=== PATIENT | male | born 1950 | race African-American/Black ===

== ENCOUNTER 2016-10-15 05:03 | Observation (INO) | payer OTHER, MEDICAID ==
[~2016-10-15] VITALS: Ht 48.3 cm; Wt 80.9 kg
[2016-10-15] MEDS ORDERED: ONDANSETRON HCL 4MG/2ML VIAL IV STA (06:08)
[2016-10-15] MEDS ORDERED: MORPHINE SULFATE 4 MG/ML CPJ (NOT FOR IM USE) IV STA (06:08)
[2016-10-15 06:24] LABS: BASOPHILS % 0.2 % (0.0-2.0); EOSINOPHILS % 1.3 % (0.0-5.0); HEMATOCRIT. 46.5 % (42.0-52.0); HEMOGLOBIN. 15.6 g/dL (14.0-18.0); LYMPHOCYTES % 11.2 % (20.0-50.0); MEAN CORPUSCULAR HEMOGLOBIN 30.9 pg (28.0-32.0); MEAN CORPUSCULAR HGB CONC 33.6 g/dL (31.0-37.0); MEAN CORPUSCULAR VOLUME 92.2 fL (80.0-94.0); MONOCYTES % 5.1 % (2.0-8.0); NEUTROPHILS % 82.2 % (40.0-76.0); PLATELET 191 x1000/uL (130-400); RED BLOOD CELL COUNT 5.04 mill/uL (4.7-6.1)
[2016-10-15 06:32] LABS: INR 1.1; PROTHROMBIN TIME 11.5 sec
[2016-10-15 06:41] LABS: ALANINE AMINOTRANSFERASE 21 IU/L (13-61); ALBUMIN 3.9 g/dL (3.4-5.0); ANION GAP 16; CALCIUM 8.9 mg/dL (8.5-10.1); CARBON DIOXIDE 26 mEq/L (21-32); CHLORIDE 102 mEq/L (98-107); INDEX HEMOLYSI 1 (1-3); INDEX ICTERIC 1 (1-4); INDEX LIPEMIC 1 (1-3); NT PRO B-TYPE NATRIURETIC PEP 12 pg/mL (5-125); TROPONIN I 0.08 ng/mL (0.00-0.04); UREA NITROGEN BLOOD 18 mg/dL (7-21); eGFR > 60 mL/min (>60)
[2016-10-15] MEDS ORDERED: ACETAMINOPHEN 325MG TABLET PO ONE (07:30)
[2016-10-15] MEDS ORDERED: SITA50TA3 PO (13:56)
[2016-10-15] MEDS ORDERED: INSULIN SUBCUT ×2 (14:10)
[2016-10-15] MEDS ORDERED: ASPI81TA2 PO (14:10)
[2016-10-15 14:25] VITALS: BP 165/95
[2016-10-15] MEDS ORDERED: DEXTROSE 50% WATER 50ML SYRINGE IV PRN (15:30)
[2016-10-15 16:00] VITALS: BP 148/91
[2016-10-15] MEDS ORDERED: LOSARTAN POTASSIUM 25 MG TABLET PO SCH (16:00)
[2016-10-15] MEDS: OMEPRAZOLE 20MG CAPSULE EXTENDED RELEASE PO SCH ×2 (16:59→20:58)
[2016-10-15] MEDS: ENOXAPARIN 40MG/0.4ML SYR SUBCUT SCH (17:00)
[2016-10-15] MEDS: BLOOD SUGAR DIAGNOSTIC STRIP TEST SCH ×2 (17:10→21:20)
[2016-10-15] MEDS: INSULIN LISPRO 100 UNITS/ML SUBCUT SCH ×2 (17:11→21:20)
[2016-10-15 20:00] VITALS: BP 186/112
[2016-10-15] MEDS: AMLODIPINE 5MG TABLET PO SCH (20:58)
[2016-10-15] MEDS ORDERED: CLONIDINE 0.1MG TABLET PO PRN (21:00)
[2016-10-16] VITALS: BP 135/78
[2016-10-16 00:28] LABS: CREATINE KINASE MB FRACTION 0.8 ng/mL (0.5-3.6); TROPONIN I 0.08 ng/mL (0.00-0.04)
[2016-10-16 04:00] VITALS: BP 125/75
[2016-10-16] MEDS: OMEPRAZOLE 20MG CAPSULE EXTENDED RELEASE PO SCH (06:14)
[2016-10-16] MEDS: INSULIN LISPRO 100 UNITS/ML SUBCUT SCH ×2 (06:15→12:43)
[2016-10-16] MEDS: BLOOD SUGAR DIAGNOSTIC STRIP TEST SCH ×3 (06:15→16:48)
[2016-10-16 07:05] LABS: BASOPHILS % 0.3 % (0.0-2.0); EOSINOPHILS % 2.1 % (0.0-5.0); HEMATOCRIT. 47.8 % (42.0-52.0); HEMOGLOBIN. 16.2 g/dL (14.0-18.0); LYMPHOCYTES % 18.8 % (20.0-50.0); MEAN CORPUSCULAR HGB CONC 33.9 g/dL (31.0-37.0); MEAN CORPUSCULAR VOLUME 91.5 fL (80.0-94.0); MEAN PLATELET VOLUME 9.4 fl (7.4-10.4); MONOCYTES % 8.3 % (2.0-8.0); NEUTROPHILS % 70.5 % (40.0-76.0); PLATELET 211 x1000/uL (130-400); RED BLOOD CELL COUNT 5.22 mill/uL (4.7-6.1); RED CELL DISTRIBUTION WIDTH 13.3 % (11.6-14.6); WHITE BLOOD COUNT 7.4 x1000/uL (4.5-11.0)
[2016-10-16 07:29] LABS: ANION GAP 11; CALCIUM 9.6 mg/dL (8.5-10.1); CARBON DIOXIDE 29 mEq/L (21-32); CHLORIDE 105 mEq/L (98-107); HDL CHOLESTEROL 70 mg/dL (40-59); INDEX HEMOLYSI 1 (1-3); INDEX ICTERIC 1 (1-4); INDEX LIPEMIC 1 (1-3); LDL CHOLESTEROL 95 mg/dL (5-100); MAGNESIUM 2.4 mg/dL (1.8-2.4); TRIGLYCERIDE 262 mg/dL (0-150); UREA NITROGEN BLOOD 15 mg/dL (7-21); eGFR > 60 mL/min (>60)
[2016-10-16 08:00] VITALS: BP 139/77
[2016-10-16 08:05] LABS: CREATINE KINASE MB FRACTION 0.6 ng/mL (0.5-3.6); TROPONIN I 0.07 ng/mL (0.00-0.04)
[2016-10-16] MEDS ORDERED: LOSARTAN POTASSIUM 50 MG TABLET PO SCH (09:00)
[2016-10-16] MEDS: AMLODIPINE 5MG TABLET PO SCH (09:11)
[2016-10-16 12:00] VITALS: BP 118/84
[2016-10-16 15:52] LABS: CREATINE KINASE 65 IU/L (39-308); CREATINE KINASE MB FRACTION < 0.5 ng/mL (0.5-3.6); INDEX HEMOLYSI 1 (1-3); TROPONIN I 0.07 ng/mL (0.00-0.04)
[2016-10-16 16:00] VITALS: BP 139/79
[2016-10-16 16:18] VITALS: BP 130/83
[2016-10-16] MEDS: ENOXAPARIN 40MG/0.4ML SYR SUBCUT SCH (16:46)
[2016-10-16 17:06] LABS: *BARBITURATES SCREEN URINE NEGATIVE (NEGATIVE); *BENZODIAZEPINES SCREEN URINE NEGATIVE (NEGATIVE); *COCAINE SCREEN URINE NEGATIVE (NEGATIVE); CANNABINOID URINE SCREEN NEGATIVE (NEGATIVE); ECSTASY MDMA SCREEN URINE NEGATIVE (NEGATIVE); METHADONE URINE SCREEN NEGATIVE (NEGATIVE); OPIATES URINE SCREEN NEGATIVE (NEGATIVE); PHENCYCLIDINE URINE SCREEN NEGATIVE (NEGATIVE)
[2016-10-16 17:09] LABS: *AMPHETAMINES SCREEN URINE NEGATIVE (NEGATIVE)
== END 2016-10-16 17:29 | disposition home or self-care (01) ==
LOC: ER 05:04 → INTOOBSV 07:37 → 5WST 07:37
PROVIDERS: ADMIT Internal Medicine; ATTEND Internal Medicine
DX: R07.89 Other chest pain (principal); R11.10 Vomiting, unspecified; N52.9 Male erectile dysfunction, unspecified; E11.9 Type 2 diabetes mellitus without complications; I10 Essential (primary) hypertension; K21.9 Gastro-esophageal reflux disease without esophagitis; Z79.4 Long term (current) use of insulin; Z82.49 Family history of ischemic heart disease and other diseases of the circulatory system; Z87.891 Personal history of nicotine dependence
CPT/HCPCS: 36415; 71010; 80048; 80053; 80061; 80305; 82550; 82553; 82962; 83036; 83735; 83880; 84484; 85025; 85610; 93005; 93306; 96372; 99285; G0378; J1650; J1815; J2270; J2405

== ENCOUNTER 2017-09-30 09:55 | Emergency (ER) | payer OTHER, MEDICAID ==
[~2017-09-30] VITALS: Ht 172.7 cm; Wt 80.0 kg
[~2017-09-30 09:55] MED LIST: ASPI-1160 PO; INSULIN SUBCUT; SITA50TA3 PO
[2017-09-30 13:23] VITALS: BP 147/67
== END 2017-09-30 13:24 | disposition left against medical advice (07) ==
LOC: ER 09:55
DX: Z53.21 Procedure and treatment not carried out due to patient leaving prior to being seen by health care provider (principal)

== ENCOUNTER 2021-08-11 10:44 | Emergency (ER) | payer OTHER, MEDICAID ==
[~2021-08-11] VITALS: Ht 172.7 cm; Wt 85.0 kg
[2021-08-11 13:18] LABS: BASOPHILS % 0.6 % (0.0-2.0); EOSINOPHILS % 8.1 % (0.0-5.0); HEMATOCRIT. 44.2 % (42.0-52.0); HEMOGLOBIN. 15.3 g/dL (14.0-18.0); LYMPHOCYTES % 17.7 % (20.0-50.0); MEAN CORPUSCULAR HEMOGLOBIN 30.4 pg (28.0-32.0); MEAN CORPUSCULAR VOLUME 88.1 fL (80.0-94.0); MEAN PLATELET VOLUME 8.9 fl (7.4-10.4); MONOCYTES % 12.2 % (2.0-8.0); NEUTROPHILS % 61.4 % (40.0-76.0); PLATELET 147 x1000/uL (130-400); RED BLOOD CELL COUNT 5.01 mill/uL (4.7-6.1); RED CELL DISTRIBUTION WIDTH 14.4 % (11.6-14.6)
[2021-08-11 13:27] LABS: CHLORIDE 108 mEq/L (98-107)
[2021-08-11] MEDS ORDERED: ASPIRIN 325MG EC TABLET PO ONE (16:30)
[2021-08-11 20:50] VITALS: BP 158/78
[2021-08-11] MEDS ORDERED: GABAPENTIN 300MG CAPSULE PO SCH (22:00)
== END 2021-08-11 22:09 | disposition left against medical advice (07) ==
LOC: ER 11:43 → CANBEDREQ 23:49
DX: R07.9 Chest pain, unspecified (principal); R77.8 Other specified abnormalities of plasma proteins; E11.9 Type 2 diabetes mellitus without complications; I10 Essential (primary) hypertension; Z79.4 Long term (current) use of insulin; Z79.82 Long term (current) use of aspirin; Z87.01 Personal history of pneumonia (recurrent); Z20.822 Contact with and (suspected) exposure to COVID-19
CPT/HCPCS: 36415; 71046; 80053; 82962; 83880; 84484; 85025; 87426; 93005; 99285